=== PATIENT | female | born 1945 | race Asian ===

== ENCOUNTER 2017-01-06 10:56 | Emergency (ER) | payer MEDICARE, MEDICAID ==
[~2017-01-06] VITALS: Ht 162.6 cm; Wt 61.2 kg
[2017-01-06 11:17] VITALS: BP 135/57
[2017-01-06] MEDS ORDERED: Lidocaine 2% Visc 15ml soln ORAL ONE (12:15)
--- NOTE | 2017-01-06 12:43 | Emergency Room Report ---
History of Present Illness General Chief Complaint: Vomiting Source: Patient Present Illness HPI 71-year-old female presents to emergency Department complaining of vomiting, nausea and abdominal pain rated a 7/10 in severity described as burning and epigastric in location since last night. Pt states that her symptoms have began to slowly resolve on their own. Patient states she recently was prescribed tramadol and has taken 3 pills since yesterday it all of which she took with an empty stomach every 6 hours. Patient denies fevers or chills patient denies recent travel or ill contacts. Patient states that symptoms began mildly with burning abdominal pain and then after taking a third pill had one episode of nonbloody vomiting. Patient states she has a history of arthritis in the right knee and will need replacement, and her doctor prescribed her tramadol to help with the pain. Patient reports several episodes of dizziness which she described as the room spinning, denies head trauma, weakness, or recent URI. patient denies headache, tinnitus, cardiac history, abdominal tenderness, constipation or diarrhea. She states she had similar reaction to taking Vicodin several years ago and believes that tramadol is the cause of her symptoms. She denies blood in the stool or black tarry stools . Denies CP, Palpitations, LOC, AMS, dizziness, Changes in Vision, Sensation, paresthesias, or a sudden severe headache. Allergies: Coded Allergies: ACETAMINOPHEN (Verified Allergy, Unknown, 01/06/17) HYDROCODONE (Verified Allergy, Unknown, 01/06/17) Patient History Past Medical History: see triage record Past Surgical History: none Pertinent Family History: none Now: No Immunizations: UTD Reviewed Nursing Documentation: PMH: Agreed, PSxH: Agreed Nursing Documentation-PM Past Medical History: No Stated History Hx Hypertension: Yes - high chol Hx Neurological Problems: Yes - arthiritis Review of Systems All Other Systems: negative except mentioned in HPI Physical Exam Vital Signs Date Time Temp Pulse Resp B/P Pulse Ox O2 Delivery O2 Flow Rate FiO2 01/06/17 11:17 98.1 92 24 135/57 100 Room Air Sp02 EP Interpretation: reviewed, normal General Appearance: no apparent distress, alert, GCS 15, non-toxic Head: normocephalic, atraumatic Eyes: bilateral eye PERRL, bilateral eye normal inspection ENT: hearing grossly normal, normal pharynx, no angioedema, normal voice Neck: full range of motion, supple/symm/no masses Respiratory: chest non-tender, lungs clear, normal breath sounds, speaking full sentences Cardiovascular #1: regular rate, rhythm, no edema, normal capillary refill Gastrointestinal: normal bowel sounds, soft, no guarding, no rebound, other - mild ttp to the epigastric region, Negative [place] signs, Negative MacBurney's sign, Negative Rosvigns Sign, Negative Psoas, No Peritoneal signs. Rectal: deferred Genitourinary: normal inspection, no CVA tenderness Musculoskeletal: back normal, gait/station normal, normal range of motion, non- tender, no calf tenderness Neurologic: alert, oriented x3, responsive, motor strength/tone normal, sensory intact, cerebellar normal, normal gait, speech normal, no pronator, other - negative larson's , equal development intern strength, negative rhombberg, no nystagmus noted, movements of the head do not illicit episodes of dizziness. Psychiatric: judgement/insight normal, memory normal, mood/affect normal, no suicidal/homicidal ideation Skin: normal color, no rash, warm/dry, well hydrated Lymphatic: no adenopathy Medical Decision Making PA Attestation Dr. Morgan is my supervising Physician whom patient management has been discussed with. Diagnostic Impression: Primary Impression: Gastritis Qualified Codes: K29.60 - Other gastritis without bleeding Additional Impression: Vertigo ER Course 71-year-old female presents to emergency Department complaining of vomiting, nausea and abdominal pain rated a 7/10 in severity described as burning and epigastric in location since last night. Patient states she recently was prescribed tramadol and has taken 3 pills since yesterday it all of which she took with an empty stomach every 6 hours. Patient denies fevers or chills patient denies recent travel or ill contacts. Patient states that symptoms began mildly with burning abdominal pain and then after taking a third pill had one episode of nonbloody vomiting. Patient states she has a history of arthritis in the right knee and will need replacement, and her doctor prescribed her tramadol to help with the pain. Patient reports several episodes of dizziness which she described as the room spinning, denies head trauma, weakness, or recent URI. patient denies headache, tinnitus, cardiac history, abdominal tenderness, constipation or diarrhea. She states she had similar reaction to taking Vicodin several years ago and believes that tramadol is the cause of her symptoms. She denies blood in the stool or black tarry stools . Ddx considered but are not limited to Gastritis, hypovolemia, Mnire's, BPPV, labyrinthitis, hypovolemia, cerebellar stroke, CO just to name a few Vital signs: are WNL, pt. is afebrile H&PE are most consistent with :gastritis and peripheral vertigo, HPI does not suggest cardiac cause, no focal neurological deficits, and symptoms are resolving on their own. ED INTERVENTIONS: -Zofran -Viscous lidocaine -Zantac PO - Meclizine - re-evaluation pt. states her symptoms have completely resolved. I do not suspect an emergent condition at this time. with current presentation pt. is stable for close outpatient follow up. -D/w pt to return to the ED with any worsening of symptoms or new symptoms. DISCHARGE: At this time pt. is stable for d/c to home. Will provide printed patient care instructions, and any necessary prescriptions. Care plan and follow up instructions have been discussed with the patient prior to discharge. Last Vital Signs Date Time Temp Pulse Resp B/P Pulse Ox O2 Delivery O2 Flow Rate FiO2 01/06/17 11:17 98.1 92 24 135/57 100 Room Air Disposition: HOME, SELF-CARE Condition: Stable Scripts Ranitidine Hcl* (ZANTAC*) 150 Mg Tablet 150 MG ORAL TWICE A DAY for 7 Days, #14 TAB Prov: Lise Byrne P.A. 01/06/17 Ondansetron Odt* (ZOFRAN ODT*) 4 Mg Tab.rapdis 4 MG ORAL Q6H Y for Nausea & Vomiting, #10 TAB Prov: Lise Byrne P.A. 01/06/17 Meclizine Hcl* (VERTICALM*) 25 Mg Tablet 25 MG ORAL THREE TIMES A DAY for 3 Days, #9 TAB Prov: Lise Byrne.A. 01/06/17 Referrals: NON PHYSICIAN (PCP) Patient Instructions: Nausea and Vomiting, Adult, Vertigo, [id number] Additional Instructions: Take medications as directed. Follow up with PCP in 3 days Return sooner to ED if new symptoms occur, or current symptoms become worse. - Please note that this Emergency Department Report was dictated using [employer]panda / hellofood[employer] maintenance instructor technology software, occasionally this can lead to erroneous entry secondary to interpretation by the dictation equipment. Lise Byrne Jan 06, 2017 12:43
[2017-01-06] MEDS ORDERED: Meclizine 25mg tab ORAL PRN (12:45)
[2017-01-06] MEDS ORDERED: ZOFRAN ODT4 MG ORAL (12:51)
[2017-01-06] MEDS ORDERED: VERTICALM25 MG ORAL (12:51)
[2017-01-06] MEDS ORDERED: ZANTAC150 MG ORAL (12:51)
[2017-01-06 13:01] VITALS: BP 133/81
== END 2017-01-06 13:02 | disposition home or self-care (01) ==
LOC: EMR 12:38
DX: K29.60 Other gastritis without bleeding (principal); R42 Dizziness and giddiness; E78.00 Pure hypercholesterolemia, unspecified; M19.90 Unspecified osteoarthritis, unspecified site; Z88.6 Allergy status to analgesic agent
CPT/HCPCS: 99284

== ENCOUNTER 2018-05-02 08:47 | Emergency (ER) | payer MEDICARE, BC ==
[~2018-05-02] VITALS: Ht 162.6 cm; Wt 72.6 kg
[2018-05-02 08:47] VITALS: BP 170/87
[~2018-05-02 08:47] MED LIST: VERTICALM25 MG ORAL; ZANTAC150 MG ORAL; ZOFRAN ODT4 MG ORAL
[2018-05-02] MEDS ORDERED: Sodium Chloride 500ML 500 ML IV ONE (08:56)
[2018-05-02] MEDS ORDERED: Isovue-300 100ml vial INJ PRN (09:00)
--- NOTE | 2018-05-02 09:12 | Emergency Room Report ---
History of Present Illness General Chief Complaint: Generalized Weakness Source: Patient, EMS Present Illness HPI 73-year-old female presents ED for evaluation. Patient complaining of dizziness which started this morning. Patient also noting abdominal pain. Epigastric, burning, 5 out of 10, nonradiating. Denies chest pain shortness of breath. Denies fevers or chills. No other aggravating relieving factors. Denies any other associated symptoms Allergies: Coded Allergies: ACETAMINOPHEN (Verified Allergy, Unknown, 01/06/17) HYDROCODONE (Verified Allergy, Unknown, 01/06/17) Patient History Past Medical History: other - arthritis Past Surgical History: none Pertinent Family History: none Social History: Denies: smoking, alcohol use, drug use Now: No Immunizations: UTD Reviewed Nursing Documentation: PMH: Agreed; PSxH: Agreed Nursing Documentation-PMH Past Medical History: No History, Except For Hx Hypertension: Yes Hx Neurological Problems: Yes - arthiritis Review of Systems All Other Systems: negative except mentioned in HPI Physical Exam Vital Signs Date Time Temp Pulse Resp B/P (MAP) Pulse Ox O2 Delivery O2 Flow Rate FiO2 05/02/18 08:32 98.5 80 16 168/92 98 Room Air 98.4 Sp02 EP Interpretation: reviewed, normal General Appearance: no apparent distress, alert, GCS 15, non-toxic Head: normocephalic, atraumatic Eyes: bilateral eye normal inspection, bilateral eye PERRL ENT: hearing grossly normal, normal pharynx, no angioedema, normal voice Neck: full range of motion, supple/symm/no masses Respiratory: chest non-tender, lungs clear, normal breath sounds, speaking full sentences Cardiovascular #1: regular rate, rhythm, no edema Cardiovascular #2: 2+ carotid (R), 2+ carotid (L), 2+ radial (R), 2+ radial (L) , 2+ dorsalis pedis (R), 2+ dorsalis pedis (L) Gastrointestinal: normal bowel sounds, soft, non-distended, no guarding, no rebound, tenderness - epigastric Rectal: deferred Genitourinary: normal inspection, no CVA tenderness Musculoskeletal: back normal, gait/station normal, normal range of motion, non- tender Neurologic: alert, oriented x3, responsive, motor strength/tone normal, sensory intact, speech normal Psychiatric: judgement/insight normal, memory normal, mood/affect normal, no suicidal/homicidal ideation Reflexes: 3+ bicep (R), 3+ bicep (L), 3+ tricep (R), 3+ tricep (L), 3+ knee (R) , 3+ knee (L) Skin: normal color, no rash, warm/dry, well hydrated Lymphatic: no adenopathy Medical Decision Making Diagnostic Impression: Primary Impression: Episode of generalized weakness Additional Impression: Gastritis Qualified Codes: K29.70 - Gastritis, unspecified, without bleeding ER Course Hospital Course 73-year-old F presents to ED with epigastric pain, dizziness. history of ovarian cancer s/p hysterectomy Differential diagnosis includes-appendicitis, cholecystitis, small bowel obstruction, gastritis, Clinical course Patient placed on stretcher. After initial history and physical I ordered labs , IV fluids, EKG, pain medications and CT scan Labs - no leukocytosis, electrolytes ok, LFTs normal, trop negative, UA unremarkable EKG - sinus bradycarda, no acute ischemic changes interpreted by me CT scan shows ? stone vs polyp in gallbladder ABD US - provides no additional clarificatino Upon reassessment, patient states pain has improved. Discussed findings with the patient and family. Patient is safe for discharge however given questionable finding of polyp versus mass in gallbladder with history of ovarian cancer I believe patient should have follow-up as outpatient. Patient scheduled to see her PMD tomorrow. Given copies of labs and CT findings I feel this is a highly complex case requiring extensive working including EKG/ Rhythm strip, Xray/CT/US, Blood/urine lab work, repeat exams while in ED, and administration of strong opiates/narcotics for pain control, admission to hospital or close patient follow up. Diagnosis - episode of generalized weakness, gastritis Stable and discharged to home with Rx Zantac. Followup with PMD. Return to ED if symptoms recur or worsen Labs Test 05/02/18 08:50 05/02/18 09:25 White Blood Count 3.4 K/UL (4.8-10.8) Red Blood Count 5.46 M/UL (4.20-5.40) Hemoglobin 14.9 G/DL (12.0-16.0) Hematocrit 47.2 % (37.0-47.0) Mean Corpuscular Volume 86 FL (80-99) Mean Corpuscular Hemoglobin 27.2 PG (27.0-31.0) Mean Corpuscular Hemoglobin Concent 31.5 G/DL (32.0-36.0) Red Cell Distribution Width 12.2 % (11.6-14.8) Platelet Count 198 K/UL (150-450) Mean Platelet Volume 8.2 FL (6.5-10.1) Neutrophils (%) (Auto) % (45.0-75.0) Lymphocytes (%) (Auto) % (20.0-45.0) Monocytes (%) (Auto) % (1.0-10.0) Eosinophils (%) (Auto) % (0.0-3.0) Basophils (%) (Auto) % (0.0-2.0) Differential Total Cells Counted 100 Neutrophils % (Manual) 61 % (45-75) Lymphocytes % (Manual) 31 % (20-45) Monocytes % (Manual) 2 % (1-10) Eosinophils % (Manual) 4 % (0-3) Basophils % (Manual) 2 % (0-2) Band Neutrophils 0 % (0-8) Platelet Estimate Adequate Platelet Morphology Normal Sodium Level 140 MMOL/L (136-145) Potassium Level 3.8 MMOL/L (3.5-5.1) Chloride Level 105 MMOL/L (98-107) Carbon Dioxide Level 26 MMOL/L (21-32) Anion Gap 9 mmol/L (5-15) Blood Urea Nitrogen 18 mg/dL (7-18) Creatinine 0.7 MG/DL (0.55-1.30) Estimat Glomerular Filtration Rate mL/min (>60) Glucose Level 124 MG/DL (74-106) Calcium Level 8.7 MG/DL (8.5-10.1) Total Bilirubin 0.6 MG/DL (0.2-1.0) Aspartate Amino Transf (AST/SGOT) 25 U/L (15-37) Alanine Aminotransferase (ALT/SGPT) 23 U/L (12-78) Alkaline Phosphatase 59 U/L (46-116) Troponin I 0.000 ng/mL (0.000-0.056) Total Protein 7.2 G/DL (6.4-8.2) Albumin 3.9 G/DL (3.4-5.0) Globulin 3.3 g/dL Albumin/Globulin Ratio 1.2 (1.0-2.7) Lipase 122 U/L (73-393) Urine Color Pale yellow Urine Appearance Clear Urine pH 7 (4.5-8.0) Urine Specific [place] 1.010 (1.005-1.035) Urine Protein Negative (NEGATIVE) Urine Glucose (UA) Negative (NEGATIVE) Urine Ketones Negative (NEGATIVE) Urine Occult Blood Negative (NEGATIVE) Urine Nitrite Negative (NEGATIVE) Urine Bilirubin Negative (NEGATIVE) Urine Urobilinogen Normal MG/DL (0.0-1.0) Urine Leukocyte Esterase 1+ (NEGATIVE) Urine RBC 0-2 /HPF (0 - 2) Urine WBC 0-2 /HPF (0 - 2) Urine Squamous Epithelial Cells Occasional /LPF Urine Bacteria Occasional /HPF (NONE) EKG Diagnostic Results Rate: bradycardiac Rhythm: NSR ST Segments: no acute changes ASA given to the pt in ED: No Rhythm Strip Diag. Results EP Interpretation: yes Rhythm: NSR, no PVC's, no ectopy CT/MRI/US Diagnostic Results CT/MRI/US Diagnostic Results #1: Imaging Test Ordered: CT A/P Impression Small gallbladder mass versus wall adherent stone versus polyp. Recommend sonographic correlation. Apparent hysterectomy CT/MRI/US Diagnostic Results #2: Imaging Test Ordered: ABD US Impression Recently demonstrated abnormality at the fundus of the gallbladder is not appreciated by ultrasound examination. At the least, follow-up is recommended. May be of benefit to obtain further workup with MRI. Last Vital Signs Date Time Temp Pulse Resp B/P (MAP) Pulse Ox O2 Delivery O2 Flow Rate FiO2 05/02/18 08:47 98.4 60 19 170/87 98 Room Air 98.4 Status: improved Disposition: HOME, SELF-CARE Condition: Stable Scripts Ranitidine Hcl* (ZANTAC*) 150 Mg Tablet 150 MG ORAL TWICE A DAY, #30 TAB Prov: Salty Rodriguez MD 05/02/18 Salty Rodriguez MD May 02, 2018 09:12
[2018-05-02 09:22] LABS: HEMATOCRIT 47.2 % (37.0-47.0); HEMOGLOBIN 14.9 G/DL (12.0-16.0); MEAN CORPUSCULAR VOLUME 86 FL (80-99); PLATELET COUNT 198 K/UL (150-450); RED BLOOD COUNT 5.46 M/UL (4.20-5.40); RED CELL DISTRIBUTION WIDTH 12.2 % (11.6-14.8); WHITE BLOOD COUNT 3.4 K/UL (4.8-10.8)
[2018-05-02 09:31] LABS: ANION GAP 9 mmol/L (5-15); BLOOD UREA NITROGEN 18 mg/dL (7-18); CALCIUM 8.7 MG/DL (8.5-10.1); CARBON DIOXIDE 26 MMOL/L (21-32); CHLORIDE 105 MMOL/L (98-107); CREATININE 0.7 MG/DL (0.55-1.30); POTASSIUM 3.8 MMOL/L (3.5-5.1); SODIUM 140 MMOL/L (136-145)
[2018-05-02 09:37] LABS: ALANINE AMINOTRANSFERASE 23 U/L (12-78); ALBUMIN 3.9 G/DL (3.4-5.0); ALBUMIN/GLOBULIN RATIO 1.2 (1.0-2.7); ALKALINE PHOSPHATASE 59 U/L (46-116); ASPARTATE AMINO TRANSFERASE 25 U/L (15-37); BILIRUBIN,TOTAL 0.6 MG/DL (0.2-1.0)
[2018-05-02 09:46] LABS: APPEARANCE,URINE CLEAR; BILIRUBIN, URINE NEGATIVE (NEGATIVE); COLOR,URINE PALE YELLOW; GLUCOSE, URINE (UA) NEGATIVE (NEGATIVE); KETONES,URINE NEGATIVE (NEGATIVE); LEUKOCYTE ESTERASE ,URINE 1+ (NEGATIVE); NITRITE,URINE NEGATIVE (NEGATIVE); PH,URINE 7 (4.5-8.0); PROTEIN,URINE NEGATIVE (NEGATIVE); UROBILINOGEN,URINE NORMAL MG/DL (0.0-1.0)
--- NOTE | 2018-05-02 10:49 | Diagnostic Imaging Report ---
Indication: Abdominal pain Technique: Continuous helical transaxial imaging of the abdomen and pelvis was obtained from the lung bases to the pubic symphysis during intravenous contrast administration. Coronal 2-D reformats were also obtained. Study obtained in a Siemens sensation [address] Automatic Exposure Control was utilized. Total Dose length Product (DLP): 712.[address] Dose Index Volume (CTDIvol): 14.36 mGy Comparison: None Findings: At the fundus of the gallbladder there is a slightly heterogeneous apparently enhancing focus measuring about 1.2 cm. This could be a small mass such as a polyp or wall adherent stone. (For example image 15 series 5, image 32 series 3). Recommend sonographic correlation. Mild reticular densities are seen at the lung bases likely atelectasis. Bilateral breast implants partially noted. Cyst demonstrated in the left lobe of the liver measuring 1 cm. Spleen is unremarkable. The adrenal glands, pancreas appear unremarkable. There is some fullness of the collecting system especially in the right kidney. There is no evidence of obstructing stone. The urinary bladder is mildly distended which may account for this. There is no free fluid. Uterus is not seen. Appendix not definitely seen but there are no secondary signs of acute appendicitis. IMPRESSION: Small gallbladder mass versus wall adherent stone versus polyp. Recommend sonographic correlation. Apparent hysterectomy Atherosclerotic disease. Minimal fullness of the collecting system may be on the basis of a distended urinary bladder. Bilateral breast implants. Liver cyst. The CT scanner at [facility] is accredited by the [employer] and the scans are performed using dose optimization techniques as appropriate to a performed exam including Automatic Exposure control.
[2018-05-02 11:04] VITALS: BP 137/62
[2018-05-02] MEDS ORDERED: RANITIDINE HCL150 MG ORAL (12:24)
[2018-05-02 12:35] VITALS: BP 131/64
--- NOTE | 2018-05-02 12:59 | Diagnostic Imaging Report ---
Indication: Gallbladder mass Technique: Grayscale and duplex Doppler imaging of the abdomen performed. Comparison: None Findings: The gallbladder is demonstrated but the abnormality at the fundus of the gallbladder is not demonstrated adequately on this exam. CBD is 6 mm. The liver and spleen are unremarkable. Kidneys are unremarkable. There is no hydronephrosis. No free fluid identified. CBD is 6 mm. Doppler interrogation of the portal vein shows patency and normal flow dynamics within the main portal vein. Pancreas is unremarkable as visualized. IMPRESSION: Recently demonstrated abnormality at the fundus of the gallbladder is not appreciated by ultrasound examination. At the least, follow-up is recommended. May be of benefit to obtain further workup with MRI.
--- NOTE | 2018-05-03 14:14 | Cardiology Report ---
APPROVED REPORT EKG Measurement Heart [id number] Sinus bradycardia Septal infarct, age undetermined Abnormal ECG
== END 2018-05-02 12:35 | disposition home or self-care (01) ==
LOC: EDBD 08:47 → EMR 09:39
DX: R53.1 Weakness (principal); K29.70 Gastritis, unspecified, without bleeding; Z88.6 Allergy status to analgesic agent; I10 Essential (primary) hypertension; M19.90 Unspecified osteoarthritis, unspecified site; Z85.43 Personal history of malignant neoplasm of ovary; Z90.710 Acquired absence of both cervix and uterus; R00.1 Bradycardia, unspecified
CPT/HCPCS: 36415; 74177; 76700; 80053; 81003; 83690; 84484; 85007; 85025; 93005; 96374; 96375; 99284; J2405; J7040; Q9967; S0028